=== PATIENT | female | born 1955 | race Two or more races ===

== ENCOUNTER → 2024-12-24 | Outpatient (CLI) | payer MEDICARE, MEDICAID, SELFPAY ==
--- NOTE | 2024-12-24 12:00 | XR_ITS ---
Examination: Bone densitometry Date and time of exam:December 24, 2024 1158 hours INDICATIONS: Menopause age 51, personal history osteopenia Technique: Lumbar spine and hip total bone mineralization values of an calculated. Peak reference and age match control results have been displayed. Findings: Lumbar spine total bone mineralization is0.815 gm/cm2. This is 2.1 standard deviations below peak reference. This is 0.2 standard deviations below age-matched controls. Hip total bone mineralization is 0.838 gm/cm2 This is 0.9 standard deviations below peak reference. This is 0.3 standard deviations above age-matched controls Impression: There is osteopenia based on lumbar spine measurements. There is osteoporosis based on hip measurements Lumbar mineralization is decreased 4.2% compared with June 26, 2013 Hip mineralization is increase 0.1% compared with June 26, 2013
== END | disposition home or self-care (01) ==
LOC: CDIM 11:38
PROVIDERS: Referring Provider Physician Assistant; Visit Provider Physician Assistant
DX: Z13.820 Encounter for screening for osteoporosis (principal); M85.88 Other specified disorders of bone density and structure, other site; M81.0 Age-related osteoporosis without current pathological fracture
CPT/HCPCS: 77080

== ENCOUNTER 2025-03-03 14:33 | Emergency (ER) | payer MEDICARE, MEDICAID, SELFPAY ==
[2025-03-03 14:40] VITALS: BP 179/85; PULSE 74; RESP 20; TEMP 36.7; O2SAT 95
--- NOTE | 2025-03-03 14:52 | XR_ITS ---
Examination: CT brain head without contrast. 2-D sagittal coronal reconstructions Date and time of exam:March 03, 2025 1755 hours INDICATIONS: Onset headaches with dizziness beginning this morning CTDI: vol (mGy):49.5 DLP: (mGycm):1030 Technique: Multiple CT axial sections of the brain have been obtained, 5 mm slice thickness. Contrast has not been administered. 2-D sagittal, coronal reconstructions have been obtained Low dose protocols were performed. One or more of the following dose reduction techniques were used; automated exposure control, adjustment of the mA and/or KV according to patient size, use of iterative reconstruction technique. Findings: No significant ventricular enlargement. Intra-axial or extra-axial hemorrhage density is not seen. No mass effect or midline shift Basal cisterns are not remarkable. Fourth ventricle is midline. Cranial vault intact. Impression: Negative for acute hemorrhage, mass effect or midline shift Advise clinical correlation and follow-up coronary
--- NOTE | 2025-03-03 14:55 | PD.EDRME ---
Rapid Medical Screening Exam RME Arrival date/time: 03/03/25 14:33 69-year-old female with no known medical history presents to the emergency room with a chief complaint of a headache, dizziness, weakness that has progressively gotten worse. Son at bedside states they were seen by their primary care provider today and were sent to the emergency room for further management of this left-sided 10 out of 10 headache I have greeted and performed a focused initial assessment of this patient. A comprehensive ED assessment and evaluation of the patient, analysis of all test results, and completion of the medical decision making process will be conducted by additional ED providers. Chief Complaint: Dizziness Time Seen by Provider: 03/03/25 14:44 Vital signs: Vital Signs Temperature 98.1 F 03/03/25 14:40 Pulse Rate 74 03/03/25 14:40 Respiratory Rate 20 03/03/25 14:40 Blood Pressure 179/85 H 03/03/25 14:40 Pulse Oximetry (%) 95 03/03/25 14:40 Oxygen Delivery Method Room Air 03/03/25 14:40 Vital signs reviewed by provider: Yes
[2025-03-03 15:27] LABS: Collection Type, Urine Clean Catch
[2025-03-03 15:30] LABS: Basophils # (Auto) 0.0 Thou/mm3 (0.0-0.2); Basophils % (Auto) 1 % (0-2.5); Eosinophils # (Auto) 0.2 Thou/mm3 (0.0-0.5); Eosinophils % (Auto) 4 % (0-10); Hematocrit 45.7 % (36.0-46.0); Hemoglobin 14.8 g/dL (12.0-16.0); Immature Granulocytes Auto 0.02 Thou/mm3 (0.00-0.00); Lymphocytes # (Auto) 1.5 Thou/mm3 (1.0-4.8); Lymphocytes % (Auto) 25 % (10-50); Mean Corpuscular HGB Conc 32.4 g/dl (31.0-37.0); Mean Corpuscular Hemoglobin 29.2 pg (25.0-35.0); Mean Corpuscular Volume 90 fL (80-100); Monocytes # (Auto) 0.4 Thou/mm3 (0.0-0.8); Monocytes % (Auto) 6 % (0-12); Neutrophils # (Auto) 3.9 Thou/mm3 (1.8-7.7); Neutrophils % (Auto) 65 % (37-80); Nucleated Red Blood Cell # 0.00 Thou/mm3 (0.00-0.00); Nucleated Red Blood Cell % 0 /100 WBC (0); Platelet Count 152 Thou/mm3 (140-440); RDW Standard Deviation 43.1 fL (36.4-46.3); Red Blood Count 5.07 Miln/mm3 (4.00-5.20); White Blood Count 6.0 Thou/mm3 (3.6-11.0)
[2025-03-03 15:32] LABS: Bilirubin,Urine Negative (Negative); Blood,Urine Negative (Negative); Clarity,Urine Clear (Clear/Hazy); Color,Urine Colorless (Lt Yel-Yel); Glucose, Urine Negative (Negative); Ketones,Urine Negative (Negative); Leukocyte Esterase,Urine Positive (Negative); Nitrite,Urine Negative (Negative); PH,Urine 6.5 (5.0-7.0); Protein,Urine Negative (Neg - Trace); RBC,Urine 2 /hpf (0-3); Specific Gravity,Urine 1.008 (1.001-1.035); Squamous Epithelial Cell,Urine 1 /hpf (0-5); Urobilinogen,Urine Negative mg/dL (0.0-1.0); WBC,Urine 4 /hpf (0-5)
[2025-03-03 15:54] LABS: B-Type Natriuretic Peptide 83 pg/mL (0-100)
[2025-03-03 16:06] LABS: Alanine Aminotransferase 10 U/L (10-49); Albumin, Serum 4.5 gm/dL (3.4-4.8); Albumin/Globulin Ratio 1.7 (1.2-2.2); Alkaline Phosphatase 101 U/L (46-116); Anion Gap 9 (7-16); Aspartate Amino Transferase 15 U/L (0-34); BUN/Creatinine Ratio 9 Ratio (12-20); Bilirubin,Total 1.9 mg/dL (0.3-1.2); Blood Urea Nitrogen 7 mg/dL (9-23); Calcium 9.4 mg/dL (8.3-10.6); Calcium (Corrected) 9.4 mg/dL (8.5-10.1); Carbon Dioxide 28.9 mMol/L (20.0-31.0); Chloride 107 mMol/L (98-107); Creatinine (Component) 0.8 mg/dL (0.6-1.3); Globulin 2.6 gm/dL (2.3-3.5); Glucose 103 mg/dL (74-106); Magnesium 1.9 mg/dL (1.6-2.6); Osmolality,Calculated 286 (275-295); Potassium 3.8 mMol/L (3.4-5.1); Sodium 145 mMol/L (136-145); Total Protein 7.1 gm/dL (5.7-8.2); Troponin I < 0.020 ng/mL (0.0-0.045); eGFR > 60 See Note
--- NOTE | 2025-03-03 18:55 | PD.EDADULT ---
ED General RME/HPI General Chief complaint: Dizziness Stated complaint: SLAUGHTER, dizziness today Time Seen by Provider: 03/03/25 14:44 Arrival date/time: 03/03/25 14:33 CC: Headache dizziness HPI of who is a language translator for the patient states the patient has intermittent headaches that sometimes last 2 hours but are mostly resolved with Tylenol or ibuprofen. The headaches have been ongoing and recurrent for years. Today she had the worst headache starting at 11 AM which has now spontaneously resolved patient assessed at 1855. Patient was given no medications while in the hospital or ER waiting room Patient is awake alert oriented nontoxic-appearing not in acute distress smiling with stable vital signs. Patient has a history of hypertension. RME / HPI RME / HPI narrative: 03/03/25 14:33 69-year-old female with no known medical history presents to the emergency room with a chief complaint of a headache, dizziness, weakness that has progressively gotten worse. Son at bedside states they were seen by their primary care provider today and were sent to the emergency room for further management of this left-sided 10 out of 10 headache I have greeted and performed a focused initial assessment of this patient. A comprehensive ED assessment and evaluation of the patient, analysis of all test results, and completion of the medical decision making process will be conducted by additional ED providers. Related Data Previous Rx's ?Medication ?Instructions ?Recorded ibuprofen 800 mg tablet 800 mg PO TID PRN pain #30 tabs 12/16/23 valacyclovir 1 gram tablet 1,000 mg PO TID #21 tabs 12/16/23 (Valtrex) Allergies Allergy/AdvReac Type Severity Reaction Status Date / Time No Known Allergies Allergy Verified 03/03/25 14:38 Review of Systems Review of Systems Narrative Review of Systems: GEN: No fever, no chills, no weight loss EYES: No discharge, no visual changes, no pain HEENT: No ear pain, no congestion, no sore throat PULM: No shortness of breath, no cough, no congestion CV: No chest pain, no dyspnea on exertion, no palpitations GI: No nausea, no vomiting, no diarrhea, no pain, no constipation : No frequency, no urgency, no dysuria MUSC/SKEL: No joint pain, no back pain SKIN: No rash PSYCH: No hallucinations, no depression HEME/LYMPH: No easy bleeding or bruising tendencies NEURO: No weakness, + headache ED Exam Narrative Physical exam: [General: Obese not in any acute distress Head normocephalic HEENT: Eyes pupils are PERRLA EOMs are intact no nystagmus mouth pink dry membranes uvula is midline swallow symmetrical phonation is normal nose: No rhinorrhea or otorrhea all of the subsystems of HEENT are within acceptable limits Neck is supple nontender, no JVD no edema Chest equal chest rise nontender to palpation Respiratory: Clear to auscultation no wheezes crackles or rubs CV: Rate rhythm is regular no murmurs rubs or clicks Abdomen is distended secondary to body habitus soft nontender no masses positive bowel sounds all 4 quadrants Back: No CVA tenderness no spinous process tenderness from cervical spine thoracic and lumbar spine Skin: Intact no petechiae rash induration ulceration or crepitus Extremities: Moving all extremity against resistance cap refill less than 2 seconds neurosensory intact Neuro: Awake alert oriented x3 Glascow coma 15 no focal deficits] Course Quality Measures none Orders Category Date Time Status EKG (ED ONLY) *Do not use* NOW Care 03/03/25 14:[address] head/brain wo con Stat Exams 03/03/25 14:52 Completed EKG (ED Only) Stat Exams 03/03/25 14:52 Ordered B-Type Natriuretic Peptide Stat Lab 03/03/25 15:19 Completed CBC Stat Lab 03/03/25 15:19 Completed Comprehensive Metabolic Panel Stat Lab 03/03/25 15:19 Completed Magnesium Stat Lab 03/03/25 15:19 Completed Troponin I Stat Lab 03/03/25 15:19 Completed Urinalysis Stat Lab 03/03/25 15:21 Completed Vital Signs Vital signs: Vital Signs Temperature 98.1 F 03/03/25 14:40 Pulse Rate 74 03/03/25 14:40 Respiratory Rate 20 03/03/25 14:40 Blood Pressure 179/85 H 03/03/25 14:40 Pulse Oximetry (%) 95 03/03/25 14:40 Oxygen Delivery Method Room Air 03/03/25 14:40 Discharge Plan Plan Patient Disposition: HOME (Self Care) Patient condition on transfer: Stable Prescriptions/Referrals Prescriptions/Med Rec: No Action valacyclovir [Valtrex] 1 gram tablet 1,000 mg PO TID Qty: 21 0RF ibuprofen 800 mg tablet 800 mg PO TID PRN (Reason: pain) Qty: 30 0RF Referrals: Raul Browne PA-C [Primary Care Provider] - In 1 week Problem List Clinical Impression: Headache Patient/Caregiver Discharge Instructions Education Materials: Self-Care for Headaches Additional Instructions: Continue take medications for the headache, keep a diary of your headaches when they start when the end and what relieves them follow-up with your primary care doctor make 1 to consider referral for headache specialist or neurology. Print Language: Setswana Stand Alone Forms: Doris Award Info., Patient Portal Info Letter PA/RUSSELL Supervising Physician PA/RUSSELL Supervising Physician: Jefferson Butt MDM Clinical Information Provided by patient Medical Records Reviewed [facility] Meds/Rx Considered, not Ordered None Labs/Rad/Tests considered, not Ordered None EKG EKG not done Lab Interpretation Lab(s) interpretation(s): CBC shows no leukocytosis anemia thrombocytopenia CMP shows no acute electrolyte imbalances renal impairment transaminitis, however T. bili of 1.9 no old labs for comparison Troponin is negative BNP is unremarkable. Urine is unremarkable for any acute finding requires emergent or immediate intervention although the patient has leukocyte esterase positive there are no WBCs and no bacteria detected. Imaging Imaging interpretation: none Provider imaging interpretation(s): Patient has no symptoms whatsoever at this time spent lengthily discussing with the patient regarding hypertension management and the suggestion of follow-up with a headache specialist. Patient and are in agreement with this plan. Radiology reports / interpretation(s): CT head and C-spine is negative for any acute finding
== END 2025-03-03 19:06 | disposition home or self-care (01) ==
PROVIDERS: Nurse Practitioner Family; Emergency Provider Family Medicine; PCP Physician Assistant
DX: R51.9 Headache, unspecified (principal); I10 Essential (primary) hypertension
CPT/HCPCS: 36415; 70450; 80053; 81001; 83735; 83880; 84484; 85025; 93005; 99284